=== PATIENT | female | born 1930 | race African-American/Black ===

== ENCOUNTER 2017-09-26 23:49 | Emergency (ER) | payer MEDICARE, OTHER ==
[~2017-09-26] VITALS: Ht 167.6 cm; Wt 47.2 kg
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
[2017-09-27 00:21] LABS: BASOPHILS % (AUTO) 1.5 % (0.0-2.0); EOSINOPHILS % (AUTO) 1.4 % (0.0-3.0); LYMPHOCYTES % (AUTO) 23.8 % (20.0-45.0); MEAN CORPUSCULAR HEMOGLOBIN 29.6 PG (27.0-31.0); MEAN CORPUSCULAR HGB CONC 32.1 G/DL (32.0-36.0); MEAN CORPUSCULAR VOLUME 92 FL (80-99); MEAN PLATELET VOLUME 6.6 FL (6.5-10.1); MONOCYTES % (AUTO) 9.3 % (1.0-10.0); NEUTROPHILS % (AUTO) 64.1 % (45.0-75.0); PLATELET COUNT 212 K/UL (150-450); RED BLOOD COUNT 4.14 M/UL (4.20-5.40); RED CELL DISTRIBUTION WIDTH 12.8 % (11.6-14.8); WHITE BLOOD COUNT 7.2 K/UL (4.8-10.8)
[2017-09-27 00:28] VITALS: BP 91/52
[2017-09-27 00:29] LABS: ANION GAP 10 mmol/L (5-15); CALCIUM 10.8 MG/DL (8.5-10.1); CARBON DIOXIDE 21 MMOL/L (21-32); CHLORIDE 109 MMOL/L (98-107); CREATININE 1.2 MG/DL (0.55-1.30); POTASSIUM 3.7 MMOL/L (3.5-5.1); SODIUM 140 MMOL/L (136-145)
[2017-09-27 00:43] LABS: ALANINE AMINOTRANSFERASE 31 U/L (12-78); ASPARTATE AMINO TRANSFERASE 26 U/L (15-37); CKMB 2.5 NG/ML (0.0-3.6); TOTAL PROTEIN 7.1 G/DL (6.4-8.2)
[2017-09-27] MEDS ORDERED: Aspirin Baby 81mg ORAL ONE (00:45)
[2017-09-27 00:54] LABS: REFLEX LACTIC ACID YES OR NO YES
[2017-09-27 01:28] LABS: KETONES,URINE NEGATIVE (NEGATIVE); NITRITE,URINE POSITIVE (NEGATIVE); PH,URINE 5 (4.5-8.0); PROTEIN,URINE 1+ (NEGATIVE); UROBILINOGEN,URINE NORMAL MG/DL (0.0-1.0)
[2017-09-27 01:39] LABS: APPEARANCE,URINE SLIGHTLY CLOUDY; LEUKOCYTE ESTERASE ,URINE 2+ (NEGATIVE); RBC,URINE 0-2 /HPF (0 - 2)
[2017-09-27 01:40] LABS: BACTERIA,URINE MODERATE /HPF; SQUAMOUS EPITHELIAL CELL,UR MODERATE /LPF (NONE/OCC)
[2017-09-27] MEDS ORDERED: Nitroglycerin Subl 0.4mg tab SL PRN ×2 (01:45→02:45)
[2017-09-27] MEDS ORDERED: Morphine Sulfate 2mg/ml Inj IVP ONE (02:30)
[2017-09-27] MEDS ORDERED: cefTRIAXone 1 GM in NS 55 ML IVPB ONE (02:30)
[2017-09-27] MEDS ORDERED: Enoxaparin 60mg Inj SUBQ ONE (02:30)
[2017-09-27 02:40] VITALS: BP 101/50
[2017-09-27 03:15] VITALS: BP 106/51
[2017-09-27 04:19] VITALS: BP 101/57
--- NOTE | 2017-09-27 11:05 | Diagnostic Imaging Report ---
Indications: Syncope Technique: Spiral acquisitions obtained through the brain. Angled axial and coronal 5 x 5 mm slices were reconstructed. Total dose length product 1245 mGycm. CTDI vol(s) 70 mGy. Dose reduction achieved using automated exposure control Comparison: None Findings: There is an area of encephalomalacia involving the right [place] and parietal lobes. There is resultant ex vacuo dilatation of the atrium and temporal horn the right lateral ventricle. There is age-related enlargement of ventricles and extra axial CSF spaces. There is periventricular deep white matter chronic ischemic change. No acute intracranial hemorrhage or edema. No mass effect nor midline shift. Intact calvarium. There is evidence of prior ocular surgery bilaterally. There is right-sided ethmoid and left-sided sphenoid opacification. 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 The CT scanner at [facility] is accredited by the [employer] and the scans are performed using protocols designed to limit radiation exposure to as low as reasonably achievable to attain images of sufficient resolution adequate for diagnostic evaluation.
--- NOTE | 2017-09-27 13:27 | Diagnostic Imaging Report ---
Indication: SYNCOPE Technique: One view of the chest Comparison: none Findings: The lungs and pleural spaces are clear. Heart size is upper limits normal. Aorta is tortuous and calcified. There is right paratracheal widening with deviation of the trachea to the left. 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 Consider thyroid ultrasound for further evaluation No acute process Findings discussed by phone with Dr. Escalera in the emergency room at the time of interpretation
--- NOTE | 2017-09-29 15:36 | Cardiology Report ---
APPROVED REPORT EKG Measurement Heart [id number] Sinus rhythm with 1st degree AV block Abnormal ECG
== END 2017-09-27 04:25 | disposition short-term general hospital (02) ==
LOC: EDBD 23:49 → EMR 23:59
DX: R55 Syncope and collapse (principal); I24.9 Acute ischemic heart disease, unspecified; I20.0 Unstable angina; I10 Essential (primary) hypertension; Z88.1 Allergy status to other antibiotic agents
CPT/HCPCS: 36415; 70450; 71010; 80053; 81003; 82550; 82553; 83605; 84484; 85025; 87040; 87086; 87181; 93005; 96361; 96372; 96374; 99291; J0696; J1650; J2270

== ENCOUNTER 2017-11-16 10:17 | Emergency (ER) | payer MEDICARE ==
[~2017-11-16] VITALS: Ht 167.6 cm; Wt 44.9 kg
[2017-11-16 10:22] VITALS: BP 158/94
--- NOTE | 2017-11-16 11:54 | Emergency Room Report ---
History of Present Illness General Chief Complaint: Multiple Trauma/Fall Source: Patient, Medical Record Present Illness HPI 87-year-old female presents with right hip pain and lower back pain after traumatic fall 2 days ago. Patient was moving from sitting to standing\\walking position, was "feeling sick" with nausea and then passed out and fell on ground. Denies hitting head. Patient on aspirin and Plavix. Had stent placed in September for heart attack at [facility] Per daughter, patient started on multiple blood pressure medications including carvedilol, losartan and now imdur Patient's daughter states that her blood pressures been difficult to control, PMD started on Imdur because systolic blood pressure now 150. Allergies: Coded Allergies: TETRACYCLINE (Verified Allergy, Unknown, 09/27/17) Patient History Past Medical History: CAD Past Surgical History: other - stent Pertinent Family History: none Social History: Denies: smoking, alcohol use, drug use Now: No Immunizations: UTD Reviewed Nursing Documentation: PMH: Agreed, PSxH: Agreed Nursing Documentation-PMH Past Medical History: No History, Except For Hx Hypertension: Yes Review of Systems All Other Systems: negative except mentioned in HPI Physical Exam Vital Signs Date Time Temp Pulse Resp B/P (MAP) Pulse Ox O2 Delivery O2 Flow Rate FiO2 11/16/17 10:22 97.3 73 18 158/94 98 Room Air Sp02 EP Interpretation: reviewed, normal General Appearance: normal inspection, well appearing, no apparent distress, alert, GCS 15, non-toxic Head: normocephalic, atraumatic Eyes: bilateral eye PERRL, bilateral eye EOMI ENT: normal ENT inspection, hearing grossly normal, normal pharynx, no angioedema, normal voice, TMs + canals normal, uvula midline, moist mucus membranes Neck: normal inspection, full range of motion, supple, thyroid normal, no meningismus, no bony tend Respiratory: normal inspection, lungs clear, normal breath sounds, no rhonchi, no respiratory distress, no retraction, no accessory muscle use, no wheezing, speaking full sentences Cardiovascular #1: regular rate, rhythm, no edema, no JVD, normal capillary refill Gastrointestinal: normal inspection, normal bowel sounds, non tender, soft, no mass, no peritonitis, non-distended, no guarding, no hernia, no pulsatile mass Genitourinary: no CVA tenderness Musculoskeletal: normal inspection, normal range of motion, no calf tenderness , pelvis stable, Conrado's Sign negative, other - No obvious signs of trauma to lower back, significant tenderness to LS spine; Tenderness along the right inguinal canal, and proximal femur. Reduced range of motion due to pain to right hip, but no shortening of right lower extremity. Neurologic: normal inspection, alert, oriented x3, responsive, non destructive evaluation specialist III-XII nml as tested, motor strength/tone normal, cerebellar normal, normal gait, speech normal Psychiatric: normal inspection, judgement/insight normal, mood/affect normal, no suicidal/homicidal ideation, no delusions Skin: normal inspection, normal color, no rash Lymphatic: normal inspection, no adenopathy Medical Decision Making Diagnostic Impression: Primary Impression: Fall Qualified Codes: W19.XXXA - Unspecified fall, initial encounter Additional Impressions: Syncope Qualified Codes: R55 - Syncope and collapse Arthritis ER Course Right hip x-ray was concerning for possible impacted femur fracture, never on CT pelvis no obvious acute fracture or dislocation of right hip or LS spine. Patient has severe degenerative disease She refused oral Tylenol in ER No other abnormalities on labs ECG is nonischemic Blood pressure remained stable in the ER Episodes of questionable syncope at home possibly vasovagal syncope possibly due to polypharmacy for hypertension Advise primary care followup for home health management of blood pressure Advise cardiology followup for management of multiple medications for high blood pressure Patient refused prescription for pain medication Was given CT result and lab results ER course: Patient has remained stable during ED stay. Disposition: Patient is to be discharged to home. Patient is instructed to follow up with their primary care doctor within 5 days. Patient is instructed to follow up with entry level staff accountant within 3 days. Strict return precautions discussed with patient such as fever, chills, worsening/severe pain, nausea, vomiting, which may indicate severe illness. Patient verbalizes understanding and agrees with plan. Please note that this Emergency Department Report was dictated using My Single Pointkeyboarding teacher technology software, occasionally this can lead to erroneous entry secondary to interpretation by the dictation equipment EKG Diagnostic Results Rate: normal Rhythm: NSR ST Segments: no acute changes ASA given to the pt in ED: No Rhythm Strip Diag. Results EP Interpretation: yes Rate: 67 Rhythm: NSR, no PVC's, no ectopy Last Vital Signs Date Time Temp Pulse Resp B/P (MAP) Pulse Ox O2 Delivery O2 Flow Rate FiO2 11/16/17 10:22 97.3 73 18 158/94 98 Room Air Status: improved Disposition: HOME, SELF-CARE FRANKIE DE LA FUENTE M.D. Nov 16, 2017 11:54
[2017-11-16 12:05] LABS: BASOPHILS % (AUTO) 1.3 % (0.0-2.0); EOSINOPHILS % (AUTO) 2.3 % (0.0-3.0); HEMATOCRIT 36.2 % (37.0-47.0); HEMOGLOBIN 11.4 G/DL (12.0-16.0); LYMPHOCYTES % (AUTO) 20.6 % (20.0-45.0); MEAN CORPUSCULAR VOLUME 93 FL (80-99); MONOCYTES % (AUTO) 6.1 % (1.0-10.0); NEUTROPHILS % (AUTO) 69.7 % (45.0-75.0); PLATELET COUNT 208 K/UL (150-450); RED CELL DISTRIBUTION WIDTH 12.6 % (11.6-14.8); WHITE BLOOD COUNT 5.2 K/UL (4.8-10.8)
[2017-11-16 12:09] LABS: APPEARANCE,URINE CLEAR; BILIRUBIN, URINE NEGATIVE (NEGATIVE); COLOR,URINE PALE YELLOW; GLUCOSE, URINE (UA) NEGATIVE (NEGATIVE); KETONES,URINE NEGATIVE (NEGATIVE); LEUKOCYTE ESTERASE ,URINE 2+ (NEGATIVE); NITRITE,URINE NEGATIVE (NEGATIVE); PH,URINE 5 (4.5-8.0); PROTEIN,URINE NEGATIVE (NEGATIVE); UROBILINOGEN,URINE NORMAL MG/DL (0.0-1.0)
[2017-11-16 12:18] LABS: ANION GAP 10 mmol/L (5-15); BLOOD UREA NITROGEN 19 mg/dL (7-18); CALCIUM 10.2 MG/DL (8.5-10.1); CARBON DIOXIDE 21 MMOL/L (21-32); CHLORIDE 108 MMOL/L (98-107); CREATININE 0.8 MG/DL (0.55-1.30); POTASSIUM 4.2 MMOL/L (3.5-5.1); SODIUM 139 MMOL/L (136-145)
--- NOTE | 2017-11-16 12:23 | Diagnostic Imaging Report ---
Indication: Pain Technique(s): 1. XRAY Hip Routine 2v+ R 2. XRAY Pelvis 1v Comparison: None Findings: The bones are diffusely demineralized. There is severe degenerative change of the right hip with joint space narrowing, subchondral sclerosis and cystic change. There is question of impacted fracture of the right femoral neck although osteopenia and degenerative change somewhat limits evaluation. Further evaluation with CT recommended. No fracture noted in the left femur. Copious stool noted throughout the colon likely reflective of constipation. Combined Impression: Questioned impacted fracture of the right femoral neck. Osteopenia and severe degenerative change of the right hip somewhat limit evaluation. Further evaluation with CT recommended.
[2017-11-16 12:28] LABS: ALANINE AMINOTRANSFERASE 30 U/L (12-78); ALBUMIN 3.4 G/DL (3.4-5.0); ALBUMIN/GLOBULIN RATIO 0.9 (1.0-2.7); ALKALINE PHOSPHATASE 110 U/L (46-116); ASPARTATE AMINO TRANSFERASE 26 U/L (15-37); BILIRUBIN,TOTAL 0.5 MG/DL (0.2-1.0); CKMB 2.4 NG/ML (0.0-3.6); CREATINE KINASE 81 U/L (26-308)
[2017-11-16 12:36] VITALS: BP 134/72
--- NOTE | 2017-11-16 13:10 | Diagnostic Imaging Report ---
Indication: Pain status post fall 2 days ago Technique: CT of the abdomen and pelvis utilizing automated exposure control without intravenous contrast. Axial, sagittal and coronal reformats. Thin section (1.5 mm) reformats were obtained in bone windows of the lumbar spine and right hip. CT dose: Total DLP 446.65 mGycm; CTDI vol 9.54 mGy Comparison: None Findings: Please note that evaluation of the abdominal and pelvic viscera is limited without the use of intravenous and oral contrast. Within these limitations, the following observations are made: Dependent atelectasis noted in the lung bases. Heart is borderline enlarged. Coronary arterial calcifications noted. No pericardial effusion. Noncontrast evaluation of the liver, gallbladder, spleen, adrenal glands and pancreas is grossly unremarkable. Kidneys are symmetric in size. No urinary tract stones or hydronephrosis is seen bilaterally. There are well-circumscribed uniformly hyperattenuating lesions in the right kidney one in the midpole the right kidney measures 6.8 mm (series 3 image 39) additional lesion in the lower pole the right kidney measures 5 mm (series 3 image #48). These may represent small proteinaceous or hemorrhagic cysts. Bladder is unremarkable in appearance. The patient is status post hysterectomy. There is no bowel obstruction. No free intraperitoneal air or fluid is seen. Copious stool is noted throughout the colon. No focal inflammatory changes noted in the bowel. Abdominal aorta is normal in caliber, slightly tortuous with scattered atherosclerotic calcifications. There is osteopenia. There is mild scoliosis of the lumbar spine. Degenerative changes noted in the thoracolumbar spine, most pronounced at L3-L4. No acute spinal fracture identified. There is severe degenerative change of the right hip with severe joint space narrowing with [id number] apposition, subchondral sclerosis and significant subchondral cystic change. No definite/displaced fracture is identified. No femoral neck fracture is seen. The left hip is normal in appearance. Symphysis pubis is maintained. Impression: * Severe degenerative change of the right hip as detailed above. No definite/displaced fracture identified. * Mild to moderate degenerative change of the spine. No definite spinal fracture identified. * Subcentimeter well-circumscribed hyperdense right renal lesions. These likely represent hemorrhagic or proteinaceous cysts. Definitive characterization with renal ultrasound recommended on a nonemergent basis. * Coronary arterial calcifications. * Copious stool noted throughout the colon raising question for constipation. The CT scanner at [facility] is accredited by the [employer] and the scans are performed using protocols designed to limit radiation exposure to as low as reasonably achievable to attain images of sufficient resolution adequate for diagnostic evaluation.
[2017-11-16 13:49] VITALS: BP 147/74
--- NOTE | 2017-11-21 14:48 | Cardiology Report ---
APPROVED REPORT EKG Measurement Heart [id number] Normal sinus rhythm Normal ECG
== END 2017-11-16 13:50 | disposition home or self-care (01) ==
LOC: EMR 12:01
DX: M25.551 Pain in right hip (principal); R55 Syncope and collapse; M54.5 Low back pain; I10 Essential (primary) hypertension; M16.11 Unilateral primary osteoarthritis, right hip; N28.9 Disorder of kidney and ureter, unspecified; I25.10 Atherosclerotic heart disease of native coronary artery without angina pectoris; Z95.5 Presence of coronary angioplasty implant and graft
CPT/HCPCS: 36415; 72170; 74176; 80053; 81003; 82550; 82553; 84484; 85025; 93005; 99284

== ENCOUNTER 2017-11-22 20:54 | Emergency (ER) | payer MEDICARE ==
[~2017-11-22] VITALS: Ht 165.1 cm; Wt 54.4 kg
[2017-11-22] MEDS ORDERED: Lidocaine 1% 10mg/ml/Epi 0.005mg/ml 30ml vial INJ ONE (21:15)
[2017-11-22 21:30] VITALS: BP 148/80
[2017-11-22] MEDS ORDERED: Silver Nitrate Stick TOPIC ONE (21:30)
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
[2017-11-22 22:12] LABS: BASOPHILS % (AUTO) 1.2 % (0.0-2.0); EOSINOPHILS % (AUTO) 1.7 % (0.0-3.0); HEMATOCRIT 36.9 % (37.0-47.0); HEMOGLOBIN 11.7 G/DL (12.0-16.0); LYMPHOCYTES % (AUTO) 16.6 % (20.0-45.0); MEAN CORPUSCULAR VOLUME 93 FL (80-99); NEUTROPHILS % (AUTO) 72.6 % (45.0-75.0); PLATELET COUNT 242 K/UL (150-450); RED BLOOD COUNT 3.95 M/UL (4.20-5.40); RED CELL DISTRIBUTION WIDTH 13.1 % (11.6-14.8); WHITE BLOOD COUNT 6.9 K/UL (4.8-10.8)
[2017-11-22 22:28] LABS: ANION GAP 13 mmol/L (5-15); BLOOD UREA NITROGEN 24 mg/dL (7-18); CALCIUM 10.6 MG/DL (8.5-10.1); CARBON DIOXIDE 20 MMOL/L (21-32); CHLORIDE 107 MMOL/L (98-107); CREATININE 0.8 MG/DL (0.55-1.30); POTASSIUM 3.9 MMOL/L (3.5-5.1); SODIUM 140 MMOL/L (136-145)
[2017-11-22 22:30] VITALS: BP 146/78
[2017-11-22 22:33] LABS: ALANINE AMINOTRANSFERASE 31 U/L (12-78); ALBUMIN 3.7 G/DL (3.4-5.0); ALBUMIN/GLOBULIN RATIO 0.9 (1.0-2.7); ALKALINE PHOSPHATASE 117 U/L (46-116); ASPARTATE AMINO TRANSFERASE 27 U/L (15-37); BILIRUBIN,TOTAL 0.4 MG/DL (0.2-1.0)
[2017-11-22] MEDS ORDERED: AMOXICILLIN500 MG ORAL (23:28)
[2017-11-22] MEDS ORDERED: TYLENOL325 MG ORAL (23:28)
[2017-11-22 23:30] VITALS: BP 146/80
[2017-11-23 00:08] VITALS: BP 146/80
--- NOTE | 2017-12-04 17:46 | Cardiology Report ---
APPROVED REPORT EKG Measurement Heart [id number] Normal sinus rhythm Normal ECG
== END 2017-11-23 00:08 | disposition home or self-care (01) ==
LOC: EMR 21:21
DX: R04.0 Epistaxis (principal); Z79.01 Long term (current) use of anticoagulants; I10 Essential (primary) hypertension
CPT/HCPCS: 30901; 36415; 80053; 84484; 85025; 85610; 86850; 86900; 86901; 93005; 99284

== ENCOUNTER 2017-11-25 13:13 | Emergency (ER) | payer MEDICARE ==
[~2017-11-25] VITALS: Ht 165.1 cm; Wt 49.9 kg
[~2017-11-25 13:13] MED LIST: AMOXICILLIN500 MG ORAL; TYLENOL325 MG ORAL
--- NOTE | 2017-11-25 14:03 | Emergency Room Report ---
History of Present Illness General Chief Complaint: To Be Triaged Source: Patient, Family Member Present Illness HPI 87-year-old female patient presents to ER for removal of Rhino Rocket from left nostril. Patient was seen in ER 3 days ago for complaints of epistaxis; states she was instructed to return for removal. Patient reports history of picking her nose. Patient complains of productive cough with sputum; denies blood in sputum. Patient denies fever, dizziness, lightheadedness, chest pain, SOB. Allergies: Coded Allergies: TETRACYCLINE (Verified Allergy, Unknown, 09/27/17) Patient History Past Medical History: see triage record Social History: Denies: smoking, alcohol use, drug use Reviewed Nursing Documentation: PMH: Agreed, PSxH: Agreed Nursing Documentation-PMH Hx Hypertension: Yes Review of Systems All Other Systems: negative except mentioned in HPI Physical Exam Vital Signs Date Time Temp Pulse Resp B/P (MAP) Pulse Ox O2 Delivery O2 Flow Rate FiO2 11/25/17 14:21 97.7 72 16 181/88 100 Room Air Sp02 EP Interpretation: reviewed, normal General Appearance: no apparent distress, alert, GCS 15, non-toxic Head: normocephalic, atraumatic Eyes: bilateral eye normal inspection, bilateral eye PERRL ENT: hearing grossly normal, normal pharynx, no angioedema, normal voice, uvula midline, moist mucus membranes, nasal congestion, other - blood in nasal cavity, no active bleeding Respiratory: chest non-tender, lungs clear, normal breath sounds, no respiratory distress, speaking full sentences Cardiovascular #1: regular rate, rhythm, no edema Musculoskeletal: gait/station normal, normal range of motion, non-tender Neurologic: alert, oriented x3, responsive, motor strength/tone normal, sensory intact, speech normal Psychiatric: mood/affect normal Skin: normal color, no rash, warm/dry, well hydrated, other - dried blood noted around left external nares Medical Decision Making PA Attestation Dr. Alex is my supervising Physician whom patient management has been discussed with. Diagnostic Impression: Primary Impression: Visit for wound check ER Course Pt. presents to the ED for removal of left nasal rhino rocket. Ddx considered but are not limited to recurrent epistaxis, infection, soft tissue injury. ORDERS: none required at this time, the diagnosis is clinical ED INTERVENTIONS: Explained procedure to patient. Patient gave verbal agreement. Rhinorocket deflated and removed from left nares. Patient tolerated procedure well. Nose examined following procedure, no acute bleeding noted. Patient in no acute distress, hemodynamically stable. DISCHARGE: At this time pt. is stable for d/c to home. Patient instructed to follow up with [facility] for further treatment. Will provide printed patient care instructions, and any necessary prescriptions. Care plan and follow up instructions have been discussed with the patient prior to discharge Disposition: HOME, SELF-CARE Condition: Stable Referrals: [facility],REFERR[facility] (PCP) Patient Instructions: Nosebleed, [id number]-Nuvp Additional Instructions: Followup with [facility] in 3 -5 days. Take medications as directed. Patient questions asked and answered. ER precautions given, patient instructed to return to ER immediately for any new or worsening of symptoms. Emiliano Campos Nov 25, 2017 14:03
[2017-11-25 14:29] VITALS: BP 181/88
[2017-11-25 14:30] VITALS: BP 181/88
== END 2017-11-25 14:32 | disposition home or self-care (01) ==
LOC: EMR 13:55
DX: Z48.00 Encounter for change or removal of nonsurgical wound dressing (principal); I10 Essential (primary) hypertension; Z88.1 Allergy status to other antibiotic agents
CPT/HCPCS: 99282

== ENCOUNTER 2018-01-07 10:39 | Inpatient (IN) | payer MEDICARE ==
[~2018-01-07] VITALS: Ht 162.6 cm; Wt 49.9 kg
[2018-01-07] VITALS (9 sets, daily range): BP systolic 125–161; BP diastolic 60–85
--- NOTE | 2018-01-07 11:01 | Emergency Room Report ---
History of Present Illness General Chief Complaint: Chest Pain Source: Patient, Medical Record (Herberth Prasad) Present Illness HPI Patient is an 87-year-old female presented having increased chest pain. Patient gradual onset of symptoms. Patient reports having intermittent pain for the past this had some radiation to her left arm. Patient described this as a tightness sensation. Patient denied any cardiac history. She reportedly takes Coreg as well as Plavix. She denies any fever. Pain is unchanged by movement. She reports having some associated breast pain. (Herberth Prasad) Allergies: Coded Allergies: TETRACYCLINE (Verified Allergy, Unknown, 09/27/17) Patient History Past Medical History: see triage record Reviewed Nursing Documentation: PMH: Agreed, PSxH: Agreed (Herberth Prasad) Nursing Documentation-PMH Past Medical History: No History, Except For Hx Hypertension: Yes (Herberth Prasad) Review of Systems All Other Systems: negative except mentioned in HPI (Herberth Prasad) Physical Exam Vital Signs Date Time Temp Pulse Resp B/P (MAP) Pulse Ox O2 Delivery O2 Flow Rate FiO2 01/07/18 10:43 97.5 69 18 167/90 100 Room Air 97.5 Sp02 EP Interpretation: reviewed, normal General Appearance: normal inspection, well appearing, no apparent distress, alert, GCS 15 Head: atraumatic ENT: normal ENT inspection, hearing grossly normal, normal voice Neck: normal inspection, full range of motion, supple, no bony tend Respiratory: normal inspection, lungs clear, normal breath sounds, no respiratory distress, no retraction, no wheezing Cardiovascular #1: regular rate, rhythm, no edema Gastrointestinal: normal inspection, normal bowel sounds, non tender, soft, no guarding, no hernia Genitourinary: no CVA tenderness Musculoskeletal: normal inspection, back normal, normal range of motion Neurologic: normal inspection, alert, oriented x3, responsive, tester armature or fields III-XII nml as tested, speech normal Psychiatric: normal inspection, judgement/insight normal, mood/affect normal Skin: normal inspection, normal color, no rash (Herberth Prasad) Medical Decision Making Diagnostic Impression: Primary Impression: Chest pain Additional Impression: ACS (acute coronary syndrome) ER Course Patient presented for chest pain. Differential diagnosis included but was not limited to acute coronary syndrome, pulmonary embolism, pneumonia, aortic dissection, shingles, pneumothorax, aortic dissection, esophageal rupture, pericarditis. Because of complexity of patient's case laboratory testing and imaging studies were ordered.Patient is noted to have evidence of prior cardiac stenting. Patient was discussed with physician from [facility] will arrange transfer. Patient was endorsed to Dr. Mendoza pending transfer to [facility]. Labs Test 01/07/18 11:10 01/07/18 12:40 White Blood Count 5.4 K/UL (4.8-10.8) Red Blood Count 4.16 M/UL (4.20-5.40) Hemoglobin 11.9 G/DL (12.0-16.0) Hematocrit 38.0 % (37.0-47.0) Mean Corpuscular Volume 91 FL (80-99) Mean Corpuscular Hemoglobin 28.6 PG (27.0-31.0) Mean Corpuscular Hemoglobin Concent 31.4 G/DL (32.0-36.0) Red Cell Distribution Width 12.3 % (11.6-14.8) Platelet Count 214 K/UL (150-450) Mean Platelet Volume 6.5 FL (6.5-10.1) Neutrophils (%) (Auto) 68.1 % (45.0-75.0) Lymphocytes (%) (Auto) 20.4 % (20.0-45.0) Monocytes (%) (Auto) 7.7 % (1.0-10.0) Eosinophils (%) (Auto) 2.6 % (0.0-3.0) Basophils (%) (Auto) 1.1 % (0.0-2.0) Sodium Level 137 MMOL/L (136-145) Potassium Level 4.0 MMOL/L (3.5-5.1) Chloride Level 106 MMOL/L (98-107) Carbon Dioxide Level 20 MMOL/L (21-32) Anion Gap 11 mmol/L (5-15) Blood Urea Nitrogen 26 mg/dL (7-18) Creatinine 0.9 MG/DL (0.55-1.30) Estimat Glomerular Filtration Rate mL/min (>60) Glucose Level 81 MG/DL (74-106) Calcium Level 10.6 MG/DL (8.5-10.1) Total Bilirubin 0.4 MG/DL (0.2-1.0) Aspartate Amino Transf (AST/SGOT) 23 U/L (15-37) Alanine Aminotransferase (ALT/SGPT) 30 U/L (12-78) Alkaline Phosphatase 135 U/L (46-116) Total Creatine Kinase 81 U/L (26-308) Creatine Kinase MB 2.2 NG/ML (0.0-3.6) Creatine Kinase MB Relative Index 2.7 Troponin I 0.000 ng/mL (0.000-0.056) Pro-B-Type Natriuretic Peptide 123 pg/mL (0-125) Total Protein 7.7 G/DL (6.4-8.2) Albumin 3.6 G/DL (3.4-5.0) Globulin 4.1 g/dL Albumin/Globulin Ratio 0.9 (1.0-2.7) Lipase 305 U/L (73-393) Urine Color Pale yellow Urine Appearance Clear Urine pH 5 (4.5-8.0) Urine Specific [place] 1.010 (1.005-1.035) Urine Protein Negative (NEGATIVE) Urine Glucose (UA) Negative (NEGATIVE) Urine Ketones Negative (NEGATIVE) Urine Occult Blood Negative (NEGATIVE) Urine Nitrite Negative (NEGATIVE) Urine Bilirubin Negative (NEGATIVE) Urine Urobilinogen Normal MG/DL (0.0-1.0) Urine Leukocyte Esterase Negative (NEGATIVE) (Herberth Prasad) ER Course Patient signed out to Dr. Tolentino, admit to tele (Esperanza Mendoza M.D.) EKG Diagnostic Results Rate: normal Rhythm: NSR ST Segments: no acute changes (Herberth Prasad) Rhythm Strip Diag. Results EP Interpretation: yes Rhythm: NSR, no PVC's, no ectopy (Herberth Prasad) Last Vital Signs Date Time Temp Pulse Resp B/P (MAP) Pulse Ox O2 Delivery O2 Flow Rate FiO2 01/07/18 10:43 97.5 69 18 167/90 100 Room Air 97.5 Status: unchanged (Herberth Prasad) Condition: Serious Herberth Prasad Jan 07, 2018 11:01 Esperanza Mendoza M.D. Jan 07, 2018 17:10
[2018-01-07 11:21] LABS: BASOPHILS % (AUTO) 1.1 % (0.0-2.0); EOSINOPHILS % (AUTO) 2.6 % (0.0-3.0); HEMOGLOBIN 11.9 G/DL (12.0-16.0); LYMPHOCYTES % (AUTO) 20.4 % (20.0-45.0); MEAN CORPUSCULAR VOLUME 91 FL (80-99); MONOCYTES % (AUTO) 7.7 % (1.0-10.0); NEUTROPHILS % (AUTO) 68.1 % (45.0-75.0); PLATELET COUNT 214 K/UL (150-450); RED BLOOD COUNT 4.16 M/UL (4.20-5.40); RED CELL DISTRIBUTION WIDTH 12.3 % (11.6-14.8); WHITE BLOOD COUNT 5.4 K/UL (4.8-10.8)
--- NOTE | 2018-01-07 11:27 | Diagnostic Imaging Report ---
Indication: Dyspnea Comparison: 09/27/2017 A single view chest radiograph was obtained. Findings: Borderline cardiomegaly demonstrated. Lungs are clear. Bones are osteopenic. 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 Aorta is calcified. IMPRESSION: No acute disease
[2018-01-07 11:32] LABS: ANION GAP 11 mmol/L (5-15); BLOOD UREA NITROGEN 26 mg/dL (7-18); CALCIUM 10.6 MG/DL (8.5-10.1); CARBON DIOXIDE 20 MMOL/L (21-32); CHLORIDE 106 MMOL/L (98-107); CREATININE 0.9 MG/DL (0.55-1.30); SODIUM 137 MMOL/L (136-145)
[2018-01-07 11:47] LABS: ALANINE AMINOTRANSFERASE 30 U/L (12-78); ALBUMIN 3.6 G/DL (3.4-5.0); ALBUMIN/GLOBULIN RATIO 0.9 (1.0-2.7); ALKALINE PHOSPHATASE 135 U/L (46-116); ASPARTATE AMINO TRANSFERASE 23 U/L (15-37); BILIRUBIN,TOTAL 0.4 MG/DL (0.2-1.0); CKMB 2.2 NG/ML (0.0-3.6); CREATINE KINASE 81 U/L (26-308)
[2018-01-07 14:03] LABS: APPEARANCE,URINE CLEAR; BILIRUBIN, URINE NEGATIVE (NEGATIVE); COLOR,URINE PALE YELLOW; GLUCOSE, URINE (UA) NEGATIVE (NEGATIVE); KETONES,URINE NEGATIVE (NEGATIVE); LEUKOCYTE ESTERASE ,URINE NEGATIVE (NEGATIVE); NITRITE,URINE NEGATIVE (NEGATIVE); PH,URINE 5 (4.5-8.0); PROTEIN,URINE NEGATIVE (NEGATIVE); UROBILINOGEN,URINE NORMAL MG/DL (0.0-1.0)
[2018-01-07] MEDS ORDERED: PANTOPRAZOLE SO40 MG ORAL (14:38)
[2018-01-07] MEDS ORDERED: CLOPIDOGREL75 MG ORAL (14:38)
[2018-01-07] MEDS ORDERED: CARVEDILOL6.25 MG ORAL (14:38)
[2018-01-07] MEDS ORDERED: LOSARTAN POTASS25 MG ORAL (14:38)
[2018-01-07] MEDS ORDERED: SIMVASTATIN20 MG ORAL (14:38)
[2018-01-07] MEDS ORDERED: ASPIR 8181 MG ORAL (14:38)
[2018-01-07] MEDS ORDERED: Aspirin Baby 81mg ORAL ONE (14:45)
[2018-01-07] MEDS ORDERED: VITAMIN B-12500 MCG ORAL (20:21)
[2018-01-07] MEDS ORDERED: VITAMIN D250000 UNI1 (20:22)
[2018-01-07] MEDS ORDERED: VITAMIN B-12500 MCG (20:23)
[2018-01-07] MEDS: Losartan 25mg tab ORAL SCH ×2 (22:45→23:17)
[2018-01-08] VITALS: BP 103/65
[2018-01-08 08:00] VITALS: BP 128/68
[2018-01-08] MEDS: Losartan 25mg tab ORAL SCH ×2 (08:37→17:27)
[2018-01-08] MEDS: Aspirin EC 81mg tab ORAL SCH (08:38)
[2018-01-08] MEDS: Carvedilol 6.25mg Tab ORAL SCH ×2 (08:39→22:21)
[2018-01-08 09:02] LABS: CHOLESTEROL 151 MG/DL (< 200); HDL CHOLESTEROL 70 MG/DL (40-60); TRIGLYCERIDES 66 MG/DL (30-150)
--- NOTE | 2018-01-08 09:13 | History & Physical ---
History and Physical History & Physicial dict H&P ACS HTN HPLD troponins cardiac FRANKIE Keane Jan 08, 2018 09:12
[2018-01-08 16:00] VITALS: BP 129/70
--- NOTE | 2018-01-08 17:15 | History and Physical Report ---
DATE OF ADMISSION: 01/07/2018 CHIEF COMPLAINT: Chest pain. HISTORY OF PRESENT ILLNESS: The patient is a poor historian. She reports that she had pain in the left breast and nipple area two days prior to admission. This is associated with heat over her chest and back. She applied some hot packs and felt better. One day prior to admission, she had some palpitations. On the day of admission, she decided to come to the emergency department although she had no further symptoms and the pain had resolved. She described the pain to the knee as sharp and lasting seconds to minutes. She described to the emergency physician that she had a tightness radiating to the left arm. She denies any prior cardiac history to my query. The emergency physician obtained a history of prior cardiac stent placement. Risk factors include hypertension and hyperlipidemia. She denies any coronary disease in the parents, smoking, or diabetes. PAST MEDICAL HISTORY: The aforementioned hypertension, hyperlipidemia, and she had an appendectomy. ALLERGY: Tetracycline. MEDICATIONS: Plavix, Coreg, aspirin, vitamin B12, vitamin D, losartan, pantoprazole, simvastatin. REVIEW OF SYSTEMS: Otherwise unremarkable. PHYSICAL EXAMINATION: GENERAL: The patient is alert and responds appropriately. VITAL SIGNS: Show blood pressure is 134/71 presently. It has been as high as 167/90 and as low as 103/65, heart rate is between 64 and 100, presently 78. Other vital signs are normal. SKIN: Warm and dry. She is thin. HEENT: Head is normocephalic. NECK: No jugular venous distention or lymphadenopathy. CHEST: Clear. CARDIAC: Rhythm is regular without murmur or gallop. ABDOMEN: Soft and nontender. Liver and spleen are not enlarged. EXTREMITIES: No clubbing, cyanosis, or edema. LABORATORY AND DIAGNOSTIC DATA: Laboratory studies show a hemoglobin is 11.9, white count and platelet count are normal. Chemistry shows negative troponin. LDL is 76. TSH is normal. Urinalysis is negative. Chest x-ray is negative. EKG shows sinus rhythm. IMPRESSION: 1. Atypical chest pain. 2. History of possible coronary heart disease. 3. Hypertension. 4. Hyperlipidemia. PLAN: The patient will have third troponin to rule out acute MO. Dr. Mcbride will see the patient in cardiac consultation. Early discharge is anticipated. Don Tolentino M.D. DR: Radha JOB#: [id number] CC: Giovani Parr M.D. ; FAX#: [phone]
[2018-01-08 20:00] VITALS: BP 148/86
[2018-01-09] VITALS (7 sets, daily range): BP systolic 106–145; BP diastolic 60–76
[2018-01-09] MEDS ORDERED: Lexiscan 0.4mg/5ml syringe IV ONE (07:00)
[2018-01-09] MEDS: Carvedilol 6.25mg Tab ORAL SCH ×2 (09:00→12:04)
[2018-01-09] MEDS: Losartan 25mg tab ORAL SCH ×3 (09:24→17:40)
[2018-01-09] MEDS: Aspirin EC 81mg tab ORAL SCH (09:25)
--- NOTE | 2018-01-09 13:43 | Diagnostic Imaging Report ---
Indication: chest pain Technique: The study was conducted under the supervision of a spudder. lexiscan (regadenoson) infusion over 10 seconds followed by intravenous administration of 31.8 mCi of technetium 99m Myoview was performed. Three plane SPECT imaging of the heart was then performed. A resting study was performed as part of the one-day protocol with 10.2 mCi of technetium 99m myoview injected intravenously at that time. Three plane SPECT imaging of the heart was obtained. Comparison: None Clinical data: 1. Clinical response: Ischemic per Dr. Mcbride 2. Electrocardiographic response: Non ischemic Findings: The myocardial perfusion scan demonstrates no definite fixed or reversible perfusion defects. Left ventricular ejection fraction is estimated at 82% which is likely an overestimation. IMPRESSION: No scintigraphic evidence of myocardial ischemia. Please further cardiology notes/consultation.
--- NOTE | 2018-01-10 10:06 | Discharge Summary ---
Discharge Summary Hospital Course Date of Admission Jan 07, 2018 at 16:40 Date of Discharge Jan 09, 2018 at 18:15 Admitting Diagnosis Chest pain HPI Maryanne Cummings is a 87 year old female who was admitted on Jan 07, 2018 at 16: 40 for Chest Pain Hospital Course [id number] Discharge Discharge Disposition Patient was discharged to Home (01) Discharge Diagnoses: Zainab Walker NP Jan 10, 2018 10:06
--- NOTE | 2018-01-11 03:00 | Discharge Summary 2 SIG ---
DATE OF ADMISSION: 01/07/2018 DATE OF DISCHARGE: 01/09/2018 BRIEF HOSPITAL COURSE: The patient is an 87-year-old female with history of hypertension, hyperlipidemia, presented to ED complaining of pain on the left breast area and nipple area, two days prior to admission. Symptoms were associated with feeling of heat over the chest and back. She applied hot packs and felt better. On the day prior to admission, she had palpitations. On the day of admission, she decided to come to emergency department although she no longer had further symptoms and the pain had resolved. She described the pain to be sharp and lasting for seconds to minutes. She had tightness radiating to the left arm. She denied any prior cardiac history. Due to her risk factors including hypertension and hyperlipidemia, she was admitted for further evaluation of chest pain. She was admitted to telemetry for cardiac evaluation. Chest x-ray showed no acute disease. Cardiac troponins were negative. Cholesterol panel was checked. LDL was 76 and HDL was 70. She had normal thyroid function. On 01/09/2018, she underwent myocardial perfusion scan. Results were nonischemic. There was no scintigraphic evidence of myocardial ischemia. She was eventually discharged home. FINAL DIAGNOSES: 1. Atypical chest pain. 2. History of possible coronary heart disease. 3. Hypertension. 4. Hyperlipidemia. DISPOSITION: The patient was discharged home. DISCHARGE MEDICATIONS: Refer to medication list. DISCHARGE INSTRUCTIONS: Follow up with PMD in a week. Don Tolentino M.D. I have been assigned to dictate discharge summary on this account and I was not involved in the patient's management. Zainab Walker N.P. DR: Renny JOB#: [id number] CC:
--- NOTE | 2018-01-12 16:21 | Cardiology Report ---
APPROVED REPORT EKG Measurement Heart [id number] Normal sinus rhythm Normal ECG
--- NOTE | 2018-01-13 09:27 | Cardiology Report ---
APPROVED REPORT EXAM: Two-dimensional and M-mode echocardiogram with Doppler and color Doppler. INDICATION Chest Pain M-Mode DIMENSIONS IVSd1.2 (0.7-1.1cm)Left Atrium (MM)3.2 (1.6-4.0cm) LVDd3.9 (3.5-5.6cm)Aortic Root2.6 (2.0-3.7cm) PWd0.8 (0.7-1.1cm)Aortic Cusp Exc.1.5 (1.5-2.0cm) LVDs1.5 (2.5-4.0cm) PWs1.7 cm Normal left ventricular chamber size, systolic function and wall motion. Left ventricular ejection fraction estimated to be 60 %. Mild left ventricular hypertrophy. No evidence of pericardial effusion. All other cardiac chamber sizes are within normal limits. Mild focal aortic valve sclerosis with adequate cusp excursion. Mildly thickened mitral valve leaflets with normal excursion. Mild mitral annulus and aortic root calcification. Normal pulmonic valve structure. Normal tricuspid valve structure. IVC is normal in size with physiological collapse. A color flow and spectral Doppler study was performed and revealed: No aortic insufficiency. Trace mitral regurgitation. Mitral diastolic velocities suggest mild left ventricular diastolic dysfunction (Grade I). Trace tricuspid regurgitation. Tricuspid systolic velocities suggests peak right ventricular systolic pressure of 27 mmHg. No pulmonic regurgitation present.
--- NOTE | 2018-01-15 16:20 | Cardiology Report ---
APPROVED REPORT EKG Measurement Heart [id number] Normal sinus rhythm Normal ECG
== END 2018-01-09 18:15 | disposition home or self-care (01) | DRG 313 ==
LOC: EMR 11:08 → 2E 16:40 → EDBEDREQ 18:50 → 2E 20:02
DX: R07.89 Other chest pain (principal); I25.10 Atherosclerotic heart disease of native coronary artery without angina pectoris; I10 Essential (primary) hypertension; E78.5 Hyperlipidemia, unspecified
CPT/HCPCS: 36415; 71045; 78452; 80053; 80061; 81003; 82550; 82553; 83690; 83880; 84443; 84484; 85025; 93005; 93017; 93306; 99285; J2785

== ENCOUNTER 2018-09-11 09:32 | Emergency (ER) | payer MEDICARE ==
[~2018-09-11] VITALS: Ht 167.6 cm; Wt 47.6 kg
[~2018-09-11 09:32] MED LIST changes: +ASPIR 8181 MG ORAL; +CARVEDILOL6.25 MG ORAL; +CLOPIDOGREL75 MG ORAL; +LOSARTAN POTASS25 MG ORAL; +PANTOPRAZOLE SO40 MG ORAL; +SIMVASTATIN20 MG ORAL; +VITAMIN B-12500 MCG; +VITAMIN B-12500 MCG ORAL; +VITAMIN D250000 UNI1
[2018-09-11 09:55] VITALS: BP 149/70
--- NOTE | 2018-09-11 10:15 | Emergency Room Report ---
History of Present Illness General Chief Complaint: Chest Pain Source: Patient Present Illness HPI This patient c/o warm feeling across anterior chest yesterday. At rest. She cannot state if duration was more or less than an hour. Mild discomfort. She is compliant with Losartan, Plavix, Pantoprazole. No problem today. No cough, no fever, no travel. No leg pain/swelling. DATE OF ADMISSION: 01/07/2018 DATE OF DISCHARGE: 01/09/2018 BRIEF HOSPITAL COURSE: The patient is an 87-year-old female with history of hypertension, hyperlipidemia, presented to ED complaining of pain on the left breast area and nipple area, two days prior to admission. Symptoms were associated with feeling of heat over the chest and back. She applied hot packs and felt better. On the day prior to admission, she had palpitations. On the day of admission, she decided to come to emergency department although she no longer had further symptoms and the pain had resolved. She described the pain to be sharp and lasting for seconds to minutes. She had tightness radiating to the left arm. She denied any prior cardiac history. Due to her risk factors including hypertension and hyperlipidemia, she was admitted for further evaluation of chest pain. She was admitted to telemetry for cardiac evaluation. Chest x-ray showed no acute disease. Cardiac troponins were negative. Cholesterol panel was checked. LDL was 76 and HDL was 70. She had normal thyroid function. On 01/09/2018, she underwent myocardial perfusion scan. Results were nonischemic. There was no scintigraphic evidence of myocardial ischemia. She was eventually discharged home. Allergies: Coded Allergies: TETRACYCLINE (Verified Allergy, Unknown, 09/27/17) Nursing Documentation-[facility] Past Medical History: No History, Except For Hx Hypertension: Yes Review of Systems Constitutional: Reports: no symptoms Eye: Reports: no symptoms ENT: Reports: no symptoms Respiratory: Reports: no symptoms Cardiovascular: Reports: no symptoms Gastrointestinal: Reports: no symptoms Genitourinary: Reports: no symptoms Musculoskeletal: Reports: no symptoms Skin: Reports: no symptoms Psychiatric: Reports: no symptoms Neurological: Reports: no symptoms Endocrine: Reports: no symptoms Hematologic/Lymphatic: Reports: no symptoms Allergic: Reports: no symptoms All Other Systems: negative except mentioned in HPI Physical Exam Vital Signs Date Time Temp Pulse Resp B/P (MAP) Pulse Ox O2 Delivery O2 Flow Rate FiO2 09/11/18 09:33 97.9 71 18 171/87 99 Room Air Sp02 EP Interpretation: reviewed, normal General Appearance: normal inspection, well appearing, no apparent distress, alert, GCS 15, non-toxic Head: normocephalic, atraumatic Eyes: bilateral eye normal inspection, bilateral eye PERRL, bilateral eye EOMI ENT: normal ENT inspection, hearing grossly normal, normal pharynx, no angioedema, normal voice, moist mucus membranes Neck: normal inspection, full range of motion, supple, no meningismus, no bony tend Respiratory: normal inspection, lungs clear, normal breath sounds, no rhonchi, no respiratory distress, no retraction, no accessory muscle use, no wheezing Cardiovascular #1: normal inspection, regular rate, rhythm, no edema Gastrointestinal: normal inspection, normal bowel sounds, non tender, soft, no mass, non-distended Musculoskeletal: gait/station normal, normal range of motion Neurologic: normal inspection, alert, oriented x3, responsive, motor strength/ tone normal Psychiatric: normal inspection, judgement/insight normal, memory normal Suicide Risk Assessment: Suicidal Ideation: No Had intent to initiate attempt: No Pt's plan for suicide attempt: No Has means to complete attempt: No Skin: normal inspection, normal color, no rash, warm/dry Medical Decision Making Diagnostic Impression: Primary Impression: Chest pain ER Course EMERGENT LABS AND DIAGNOSTIC STUDIES: Lab Results were reviewed by me and interpreted as below. Unremarkable 12-lead EKG Interpretation by Maverick Pineda MD: Normal Sinus Rhythm at 60 beats per minute Normal axis QT not prolonged Nonspecific ST-T wave changes Overall impression is normal sinus rhythm Radiology Results as interpreted by Radiology below were reviewed by Maverick Pineda MD : CXR: NAD Nursing Notes Reviewed Previous Medical Records were requested via the electronic health record. EMERGENCY DEPARTMENT COURSE / MEDICAL DECISION MAKING: The patient was placed on a clip baker, continuous pulse oximetry, and tests as ordered. My differential diagnosis included: ACS, myocardial infarction, angina, pericarditis, aortic dissection, pleurisy, pleural effusion, pneumothorax, pneumonia, PE, costochondritis, PUD, gastritis, GERD, muscular. I observed the patient for a period of time and the patient felt better. On reassessment, the patient's history, vital signs, exam and studies were all reviewed. I will re-evaluate for further workup and recommendation based on the diagnostic testing results and how the patient responds to treatment. My initial impression was: Atypical chest pain. My final impression was the same. I am not worried about PE, since the patient was not complaining of SOB, and did not have hypoxia, hemoptysis, tachycardia or syncope. Chest x-ray was negative with no signs of acute disease. The patient was advised to arrive back to the ED for new or worsening symptoms. This patient presents with signs and symptoms potentially concerning for coronary ischemia. While it is not possible to be 100% accurate about the etiology of the patient's chest pain at this time (after an ED evaluation.) The patient's MAKENNA Score is: 1. The patient's HEART Score is: 3. I told the patient that the risk of ACS/ischemia is not zero but is very unlikely. The patient confirmed heard my advice and agreed to see their own physician within two days. In addition the name of the on-call quality control industrial engineer is provided in the discharge papers. Pt. advised to return for further episodes especially if he were to develop exertional chest pain. MAKENNA: age 65 years or older 1 at least 3 risk factors for coronary artery disease 0 prior coronary stenosis of 50% or more 0 ST-segment deviation on ECG at presentation 0 at least two anginal events in prior 24 hours 0 use of aspirin in the prior seven days 0 elevated serum cardiac biomarkers 0 HEART: (0-2 for five variables) History 0 EKG (ST depr = 1mm) 0 Age (45-65) 2 Risk Factors (1-2) 1 Troponin (1-2x) 0 The patient is a good candidate for outpatient care and will be discharged with instructions to follow up with their PMD in 1-2 days. I explained the findings and plan to the patient, who expressed verbal understanding and agreed with plan for discharge and follow up. The patient was given after care instructions and welcomed to return to the ED for any new or worsening symptoms. The patient was stable at the time of discharge. The patient's blood pressure was elevated >120/80 but appears stable without evidence of hypertensive emergency or urgency. The patient was counseled about the risks of hypertension and urged to pursue outpatient monitoring and therapy within a week with their primary care physician or the list given in the community resources book. EKG Diagnostic Results EKG Time: 10:14 Rate: normal Rhythm: NSR ST Segments: no acute changes ASA given to the pt in ED: No Rhythm Strip Diag. Results Rhythm Strip Time: 10:14 EP Interpretation: yes Rate: 60 Rhythm: NSR Chest X-Ray Diagnostic Results Chest X-Ray Diagnostic Results : Chest X-Ray Ordered: Yes # of Views/Limited/Complete: 1 View Indication: Chest Pain EP Interpretation: Yes Interpretation: no consolidation, no effusion, no pneumothorax, no acute cardiopulmonary disease, other - noted rads Last Vital Signs Date Time Temp Pulse Resp B/P (MAP) Pulse Ox O2 Delivery O2 Flow Rate FiO2 09/11/18 09:55 97.9 60 29 149/70 99 Room Air Status: improved Disposition: HOME, SELF-CARE Condition: Stable Patient Instructions: Nonspecific Chest Pain Galen Pineda M.D. Sep 11, 2018 10:15
[2018-09-11 10:24] LABS: BASOPHILS % (AUTO) 1.4 % (0.0-2.0); EOSINOPHILS % (AUTO) 1.2 % (0.0-3.0); HEMATOCRIT 37.6 % (37.0-47.0); HEMOGLOBIN 12.1 G/DL (12.0-16.0); LYMPHOCYTES % (AUTO) 21.8 % (20.0-45.0); MEAN CORPUSCULAR VOLUME 89 FL (80-99); NEUTROPHILS % (AUTO) 67.6 % (45.0-75.0); PLATELET COUNT 215 K/UL (150-450); RED BLOOD COUNT 4.24 M/UL (4.20-5.40); RED CELL DISTRIBUTION WIDTH 12.3 % (11.6-14.8); WHITE BLOOD COUNT 5.6 K/UL (4.8-10.8)
[2018-09-11 10:31] LABS: ANION GAP 10 mmol/L (5-15); BLOOD UREA NITROGEN 27 mg/dL (7-18); CALCIUM 10.2 MG/DL (8.5-10.1); CARBON DIOXIDE 21 MMOL/L (21-32); CHLORIDE 107 MMOL/L (98-107); POTASSIUM 4.4 MMOL/L (3.5-5.1); SODIUM 138 MMOL/L (136-145)
[2018-09-11 10:42] LABS: ALANINE AMINOTRANSFERASE 28 U/L (12-78); ALBUMIN 3.5 G/DL (3.4-5.0); ALBUMIN/GLOBULIN RATIO 0.8 (1.0-2.7); ALKALINE PHOSPHATASE 124 U/L (46-116); ASPARTATE AMINO TRANSFERASE 28 U/L (15-37); BILIRUBIN,TOTAL 0.5 MG/DL (0.2-1.0)
--- NOTE | 2018-09-11 11:03 | Diagnostic Imaging Report ---
Indication: Chest pain Comparison: 01/07/2018, 09/27/2017 A single view chest radiograph was obtained. Findings: The lungs appear slightly hyperexpanded. Mild cardiomegaly is present. The aorta is mildly calcified. Bones are osteopenic. The trachea is deviated to the left due to a substernal mass which was noted on the prior occasion and unchanged dating back to the earliest film available 09/27/2017. 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 Suggest follow-up outpatient ultrasound exam of the thyroid gland.
[2018-09-11 11:52] LABS: APPEARANCE,URINE CLEAR; BILIRUBIN, URINE NEGATIVE (NEGATIVE); COLOR,URINE PALE YELLOW; GLUCOSE, URINE (UA) NEGATIVE (NEGATIVE); KETONES,URINE NEGATIVE (NEGATIVE); LEUKOCYTE ESTERASE ,URINE NEGATIVE (NEGATIVE); NITRITE,URINE NEGATIVE (NEGATIVE); PH,URINE 7 (4.5-8.0); PROTEIN,URINE NEGATIVE (NEGATIVE); UROBILINOGEN,URINE NORMAL MG/DL (0.0-1.0)
[2018-09-11 12:09] VITALS: BP 135/75
[2018-09-11 12:10] VITALS: BP 135/75
--- NOTE | 2018-09-13 15:22 | Cardiology Report ---
APPROVED REPORT EKG Measurement Heart [id number] Normal sinus rhythm Moderate voltage criteria for LVH, may be normal variant Borderline ECG
== END 2018-09-11 12:10 | disposition home or self-care (01) ==
LOC: EMR 10:16
DX: R07.89 Other chest pain (principal); I10 Essential (primary) hypertension; Z88.1 Allergy status to other antibiotic agents
CPT/HCPCS: 36415; 71045; 80053; 80307; 81001; 83880; 84484; 85025; 85610; 93005; 99284

== ENCOUNTER 2018-10-08 10:32 | Emergency (ER) | payer MEDICARE ==
[~2018-10-08] VITALS: Ht 157.5 cm; Wt 45.4 kg
[2018-10-08 10:54] VITALS: BP 169/86
[2018-10-08] MEDS ORDERED: Oxymetazoline 0.05% Na Spray 30ml NASAL ONE (11:15)
[2018-10-08] MEDS ORDERED: Silver Nitrate Stick TOPIC ONE (11:15)
[2018-10-08 11:26] LABS: BASOPHILS % (AUTO) 1.4 % (0.0-2.0); EOSINOPHILS % (AUTO) 1.3 % (0.0-3.0); HEMATOCRIT 36.5 % (37.0-47.0); HEMOGLOBIN 11.9 G/DL (12.0-16.0); LYMPHOCYTES % (AUTO) 20.3 % (20.0-45.0); MEAN CORPUSCULAR VOLUME 87 FL (80-99); MONOCYTES % (AUTO) 7.6 % (1.0-10.0); NEUTROPHILS % (AUTO) 69.5 % (45.0-75.0); PLATELET COUNT 242 K/UL (150-450); RED BLOOD COUNT 4.18 M/UL (4.20-5.40); WHITE BLOOD COUNT 5.4 K/UL (4.8-10.8)
[2018-10-08 12:50] VITALS: BP 148/79
--- NOTE | 2018-10-08 12:58 | Emergency Room Report ---
History of Present Illness General Chief Complaint: Nosebleed Source: Patient Present Illness HPI 87-year-old female in Plavix presents with spontaneous epistaxis this morning. She denies any trauma, reports nothing in her else, and she just couldn't get control with direct pressure. Allergies: Coded Allergies: TETRACYCLINE (Verified Allergy, Unknown, 09/27/17) Patient History Past Medical History: see triage record Reviewed Nursing Documentation: PMH: Agreed; PSxH: Agreed Nursing Documentation-PMH Past Medical History: No History, Except For Hx Hypertension: Yes Review of Systems All Other Systems: negative except mentioned in HPI Physical Exam Vital Signs Date Time Temp Pulse Resp B/P (MAP) Pulse Ox O2 Delivery O2 Flow Rate FiO2 10/08/18 10:44 89 18 169/86 99 Room Air Sp02 EP Interpretation: reviewed, normal General Appearance: no apparent distress, alert, non-toxic Head: normocephalic Eyes: bilateral eye normal inspection, bilateral eye PERRL, bilateral eye EOMI ENT: normal ENT inspection, hearing grossly normal, normal pharynx, no angioedema, normal voice, moist mucus membranes, other - L naris with active bleeding, but controlled after clips placed over nose for 20 mins Neck: normal inspection, full range of motion, supple, supple/symm/no masses Respiratory: chest non-tender, lungs clear, normal breath sounds, chest symmetrical, palpation of chest normal Cardiovascular #1: normal peripheral pulses, regular rate, rhythm Cardiovascular #2: 2+ radial (R), 2+ radial (L) Gastrointestinal: normal inspection, non tender, soft, no mass, no guarding, no rebound Rectal: deferred Genitourinary: normal inspection, no CVA tenderness Musculoskeletal: back normal, gait/station normal, normal range of motion, non- tender Neurologic: alert, responsive, hat marker III-XII nml as tested, motor strength/tone normal, sensory intact, speech normal Psychiatric: judgement/insight normal, memory normal, mood/affect normal Skin: normal color, no rash, warm/dry, normal turgor Lymphatic: no adenopathy Medical Decision Making Diagnostic Impression: Primary Impression: Anterior epistaxis ER Course Epistaxis controlled after so nitrate was used to cauterize areas of slight friability but a large clot had been removed previous to this and nasal clips were placed which actually stopped bleeding initially, chemical cauterization was used to complete the procedure. Patient was given Afrin afterwards, and I reevaluated the naris as well as the posterior pharynx and there is no active bleeding. Patient and grandson told to hold one dose of Plavix. Also given nasal precautions Last Vital Signs Date Time Temp Pulse Resp B/P (MAP) Pulse Ox O2 Delivery O2 Flow Rate FiO2 10/08/18 10:44 89 18 169/86 99 Room Air Disposition: HOME, SELF-CARE Condition: Stable Referrals: NON PHYSICIAN (PCP) HEENA KOHLER M.D Oct 08, 2018 12:58
== END 2018-10-08 12:50 | disposition home or self-care (01) ==
LOC: EMR 11:32
DX: R04.0 Epistaxis (principal); I10 Essential (primary) hypertension; Z88.1 Allergy status to other antibiotic agents
CPT/HCPCS: 36415; 85025; 99283

== ENCOUNTER 2020-10-04 11:25 | Emergency (ER) | payer MEDICARE ==
[~2020-10-04] VITALS: Ht 167.6 cm; Wt 43.5 kg
[2020-10-04] MEDS ORDERED: Morphine Sulfate 2mg/ml Inj(IV/IM USE ONLY) IVP ONE ×2 (12:00→14:30)
[2020-10-04 12:42] LABS: BASOPHILS % (AUTO) 1.2 % (0.0-2.0); EOSINOPHILS % (AUTO) 0.5 % (0.0-3.0); HEMATOCRIT 36.6 % (37.0-47.0); HEMOGLOBIN 11.7 G/DL (12.0-16.0); LYMPHOCYTES % (AUTO) 11.8 % (20.0-45.0); MEAN CORPUSCULAR VOLUME 93 FL (80-99); MONOCYTES % (AUTO) 6.2 % (1.0-10.0); NEUTROPHILS % (AUTO) 80.3 % (45.0-75.0); PLATELET COUNT 233 K/UL (150-450); RED BLOOD COUNT 3.96 M/UL (4.20-5.40); RED CELL DISTRIBUTION WIDTH 13.8 % (11.6-14.8); WHITE BLOOD COUNT 7.8 K/UL (4.8-10.8)
[2020-10-04 12:52] LABS: INR 0.9 (0.9-1.1)
[2020-10-04 12:55] LABS: ALANINE AMINOTRANSFERASE 29 U/L (12-78); ALBUMIN 3.5 G/DL (3.4-5.0); ALBUMIN/GLOBULIN RATIO 0.9 (1.0-2.7); ALKALINE PHOSPHATASE 142 U/L (46-116); ASPARTATE AMINO TRANSFERASE 31 U/L (15-37); BILIRUBIN,TOTAL 0.5 MG/DL (0.2-1.0); BLOOD UREA NITROGEN 31 mg/dL (7-18); CALCIUM 9.9 MG/DL (8.5-10.1); CHLORIDE 107 MMOL/L (98-107); CREATININE 0.9 MG/DL (0.55-1.30); SODIUM 140 MMOL/L (136-145)
[2020-10-04 13:13] VITALS: BP 132/77
[2020-10-04 13:14] LABS: CARBON DIOXIDE 23 MMOL/L (21-32)
--- NOTE | 2020-10-04 13:20 | Diagnostic Imaging Report ---
Indication: Pain, trauma status post fall Technique: Spiral acquisitions obtained through the cervical spine. No IV contrast utilized. Multiplanar reconstructions were generated. Total dose length product 467 mGycm. CTDIvol(s) 19 mGy. Dose reduction achieved using automated exposure control. Comparison: none Findings: There is very slight posterior offset of C3 3 on C4 and C4 on C5, otherwise normal bony alignment. There is slight exaggeration of the normal cervical lordosis. No prevertebral soft tissue swelling. No acute fracture. No dislocation. At C3-4, there is moderate degenerative disc narrowing. There is moderate to severe stenosis of the bilateral neural foramina. At C4-5, there is severe degenerative disc narrowing. There is essential bony occlusion of the left neural foramen and severe stenosis of the right neural foramen. At C5-6, there is moderate degenerative disc narrowing. There is severe right and moderate to severe left neural foraminal stenosis. At C6-7, there is moderate degenerative disc narrowing. There is mild bilateral neural foraminal stenosis. There is no significant disc bulge or protrusion or spinal stenosis. At the remaining levels, no neural foraminal narrowing. There is multilevel bilateral facet arthrosis. The right thyroid lobe is enlarged and demonstrates multiple nodules. Impression: No acute bony trauma Degenerative changes, as described Multinodular thyroid. Consider further evaluation with sonography if clinically indicated The CT scanner at [facility] is accredited by the [employer] and the scans are performed using protocols designed to limit radiation exposure to as low as reasonably achievable to attain images of sufficient resolution adequate for diagnostic evaluation.
--- NOTE | 2020-10-04 13:28 | Diagnostic Imaging Report ---
Indication: Pain status post fall Technique: Spiral acquisitions obtained through the thoracic spine. No IV contrast utilized. Multiplanar reconstructions were generated. Total dose length product 203 mGycm. CTDIvol(s) 5 mGy. Dose reduction achieved using automated exposure control Comparison: none Findings: There is mild upper thoracic scoliotic deformity. Otherwise normal bony alignment. The vertebral body heights are preserved. No evidence of acute fracture or dislocation. There is multilevel mostly mild degenerative disc narrowing. No significant disc bulge or protrusion, spinal stenosis, or neural foraminal stenosis is evident. There are multiple endplate depressions caused by intravertebral disc herniation. The included extra spinal soft tissues are unremarkable for a large substernal extension of the right thyroid with what appears to be a heterogeneous mass measuring approximately 6 x 4.4 cm. Impression: No acute bony trauma Degenerative changes as described Enlarged right lobe thyroid with large right lower pole mass extending substernally. Consider further evaluation with sonography if clinically indicated Mild scoliotic deformity The CT scanner at [facility] is accredited by the [employer] and the scans are performed using protocols designed to limit radiation exposure to as low as reasonably achievable to attain images of sufficient resolution adequate for diagnostic evaluation.
[2020-10-04 13:29] LABS: CREATINE KINASE 193 U/L (26-308)
--- NOTE | 2020-10-04 13:35 | Diagnostic Imaging Report ---
Indications: Pain from fall last Saturday Technique: Spiral acquisitions obtained through the lumbar spine. Multiplanar reconstructions were generated. No IV contrast utilized. Total dose length product 128 mGycm. CTDIvol(s) 4 mGy. Dose reduction achieved using automated exposure control Comparison: none Findings: L1 and the bottom of T12 are not included on the imaging volume, but are well visualized on simultaneous CT of the thoracic spine. Vertebral body heights are preserved. Alignment is normal. Vertebral body heights are preserved. No acute fracture. No dislocation. There is multilevel degenerative disc narrowing. T12-L1, circumferential annular bulge results in mild compromise of the right lateral neural foramina. No significant spinal canal stenosis. At the remaining levels, no significant disc bulge or protrusion, spinal stenosis, or neural foraminal stenosis. There is minimal degenerative change of the left sacroiliac joint. There is [id number] apposition of the L3, L4, and L5 spinous processes. The included extra spinal soft tissues demonstrate colonic diverticulosis. Impression: No acute bony trauma Degenerative changes as described Incidental finding of colonic diverticulosis The CT scanner at [facility] is accredited by the [employer] and the scans are performed using protocols designed to limit radiation exposure to as low as reasonably achievable to attain images of sufficient resolution adequate for diagnostic evaluation.
--- NOTE | 2020-10-04 13:42 | Diagnostic Imaging Report ---
Indication: Pain status post fall Technique: Noncontrast spiral acquisitions obtained through the pelvis. Multiplanar reconstructions generated. Total dose length product 130 mGycm. CTDIvol(s) 3 mGy. Dose reduction achieved using automated exposure control Comparison: Abdomen and pelvis CT 11/16/2017 Findings: No evidence of acute fracture. No dislocation. There are fairly severe degenerative changes of the right hip, less severe degenerative changes of the left hip. Unusual density is seen extending from just anterior to the right acetabulum under the right femoral neck. This measures 5.4 x 2.4 cm. An ovoid fluid attenuation and opacity is seen between the abductor muscles on the right. This measures 2.7 x 1.3 cm. The pelvic viscera demonstrate colonic diverticulosis. There is no evidence of significant hematoma or contusion. Impression: No acute bony trauma Degenerative changes, as described There is a soft tissue opacity and a fluid opacity in the right groin region, the etiology and nature of which are uncertain., Neither definitely present on prior study 11/16/2017. Nonemergent MRI may be useful for further evaluation if clinically indicated Colonic diverticulosis The CT scanner at [facility] is accredited by the [employer] and the scans are performed using protocols designed to limit radiation exposure to as low as reasonably achievable to attain images of sufficient resolution adequate for diagnostic evaluation.
--- NOTE | 2020-10-04 13:44 | Diagnostic Imaging Report ---
Clinical Indication:Wrist pain Technique: 3 views of the right wrist Comparison: None Findings: There is a cyst in the distal radius. There are degenerative changes of the first carpometacarpal joint and lateral intercarpal joint. Bones are osteoporotic. No acute fracture. No dislocation. Impression: No acute bony trauma Degenerative changes, as described
--- NOTE | 2020-10-04 13:46 | Diagnostic Imaging Report ---
Indications: Pain status post fall Technique: Two views of the right forearm Comparison: None Findings: No acute fracture. No dislocation. Bones are osteoporotic. There is a cyst in the distal radius. Impression: No acute bony trauma
--- NOTE | 2020-10-04 13:48 | Diagnostic Imaging Report ---
Indication: Pain, status post fall Technique: 3 views right hand Comparison: none Findings: No acute fracture. No dislocation. There are degenerative changes of the first and carpal phalangeal joint, second through fifth distal interphalangeal joints, and of the wrist Impression: Degenerative changes. No acute bony trauma
[2020-10-04] MEDS ORDERED: Acetaminophen 500mg (ES) tab ORAL ONE (14:30)
--- NOTE | 2020-10-04 14:33 | Emergency Room Report ---
History of Present Illness General Chief Complaint: Multiple Trauma/Fall Source: Patient Present Illness HPI 89-year-old female presents to ED for evaluation. Brought in by granddaughter. Status post fall at home. 2 days ago. Neighbor found the patient and called the granddaughter. Patient is complaining of back pain and right arm pain. 10 out of 10, dull, nonradiating. Denies any headache. Denies any nausea or vomiting. Denies any chest pain or shortness of breath. No other aggravating relieving factors. Denies any other associated symptoms Allergies: Coded Allergies: TETRACYCLINE (Verified Allergy, Unknown, 09/27/17) COVID-19 Screening Contact w/high risk pt: No Experienced COVID-19 symptoms?: No COVID-19 Testing performed DIRECTOR MEDICAL SCIENCE: No Patient History Past Medical History: HTN Past Surgical History: none Pertinent Family History: none Social History: Denies: smoking, alcohol use, drug use Now: No Immunizations: UTD Reviewed Nursing Documentation: PMH: Agreed; PSxH: Agreed Nursing Documentation-PMH Hx Hypertension: Yes Review of Systems All Other Systems: negative except mentioned in HPI Physical Exam Vital Signs Date Time Temp Pulse Resp B/P (MAP) Pulse Ox O2 Delivery O2 Flow Rate FiO2 10/04/20 11:32 98.1 71 18 153/70 (97) 99 Room Air Sp02 EP Interpretation: reviewed, normal General Appearance: alert, GCS 15, non-toxic, cachetic Head: normocephalic, atraumatic Eyes: bilateral eye normal inspection, bilateral eye PERRL ENT: hearing grossly normal, normal pharynx, no angioedema, normal voice Neck: full range of motion, supple/symm/no masses, tender midline Respiratory: chest non-tender, lungs clear, normal breath sounds, speaking full sentences Cardiovascular #1: regular rate, rhythm, no edema Cardiovascular #2: 2+ carotid (R), 2+ carotid (L), 2+ radial (R), 2+ radial (L), 2+ dorsalis pedis (R), 2+ dorsalis pedis (L) Gastrointestinal: normal bowel sounds, non tender, soft, non-distended, no guarding, no rebound Rectal: deferred Genitourinary: normal inspection, no CVA tenderness, vertebral tenderness Musculoskeletal: back normal, normal range of motion, gait/station normal, tender - R forearm Neurologic: alert, motor strength/tone normal, oriented x3, sensory intact, responsive, speech normal Psychiatric: judgement/insight normal, memory normal, mood/affect normal, no suicidal/homicidal ideation Reflexes: 3+ bicep (R), 3+ bicep (L), 3+ tricep (R), 3+ tricep (L), 3+ knee (R), 3+ knee (L) Lymphatic: no adenopathy Medical Decision Making Diagnostic Impression: Primary Impression: Multiple injuries due to trauma ER Course Hospital Course 89-year-old female presents with pain to her right arm and back status post fall Differential diagnoses include: fracture, dislocation, contusion Clinical course Patient placed on stretcher. After initial history and physical I ordered labs, pain meds, multiple imaging studies Labs reviewed- no leukocytosis, electrolytes okay, hemoglobin/hematocrit okay CT C-spine T-spine L-spine and pelvis show degenerative changes but no acute fractures X-rays show no acute fractures. There are degenerative changes Continues to have pain. Unsteady gait. Lives alone. Given age and comorbidities I do not believe patient can be safely discharged to home. Spoke to granddaughter who is POA. Agrees with admission. Because of insurance patient will be transferred i. I feel this is a highly complex case requiring extensive working including EKG/Rhythm strip, Xray/CT/US, Blood/urine lab work, repeat exams while in ED, and administration of strong opiates/narcotics for pain control, admission to hospital or close patient follow up. Diagnosis -multiple injuries due to trauma transferrred in serious condition Laboratory Tests Test 10/04/20 12:05 10/04/20 12:33 White Blood Count 7.8 K/UL (4.8-10.8) Red Blood Count 3.96 M/UL (4.20-5.40) L Hemoglobin 11.7 G/DL (12.0-16.0) L Hematocrit 36.6 % (37.0-47.0) L Mean Corpuscular Volume 93 FL (80-99) Mean Corpuscular Hemoglobin 29.6 PG (27.0-31.0) Mean Corpuscular Hemoglobin Concent 32.0 G/DL (32.0-36.0) Red Cell Distribution Width 13.8 % (11.6-14.8) Platelet Count 233 K/UL (150-450) Mean Platelet Volume 7.0 FL (6.5-10.1) Neutrophils (%) (Auto) 80.3 % (45.0-75.0) H Lymphocytes (%) (Auto) 11.8 % (20.0-45.0) L Monocytes (%) (Auto) 6.2 % (1.0-10.0) Eosinophils (%) (Auto) 0.5 % (0.0-3.0) Basophils (%) (Auto) 1.2 % (0.0-2.0) Prothrombin Time 10.3 SEC (9.30-11.50) Prothromb Time International Ratio 0.9 (0.9-1.1) Activated Partial Thromboplast Time 22 SEC (23-33) L Sodium Level 140 MMOL/L (136-145) Potassium Level 4.0 MMOL/L (3.5-5.1) Chloride Level 107 MMOL/L (98-107) Carbon Dioxide Level 23 MMOL/L (21-32) Blood Urea Nitrogen 31 mg/dL (7-18) H Creatinine 0.9 MG/DL (0.55-1.30) Estimat Glomerular Filtration Rate > 60 mL/min (>60) Glucose Level 77 MG/DL (74-106) Calcium Level 9.9 MG/DL (8.5-10.1) Total Bilirubin 0.5 MG/DL (0.2-1.0) Aspartate Amino Transf (AST/SGOT) 31 U/L (15-37) Alanine Aminotransferase (ALT/SGPT) 29 U/L (12-78) Alkaline Phosphatase 142 U/L (46-116) H Total Protein 7.5 G/DL (6.4-8.2) Albumin 3.5 G/DL (3.4-5.0) Globulin 4.0 g/dL Albumin/Globulin Ratio 0.9 (1.0-2.7) L Total Creatine Kinase 193 U/L (26-308) Other X-Ray Diagnostic Results Other X-Ray Diagnostic Results #1: X-Ray ordered: R hand # of Views/Limited Vs Complete: 3 View Indication: Pain EP Interpretation: Yes Interpretation: no dislocation, no soft tissue swelling, no fractures Impression: No acute disease Electronically Signed by: Electronically signed by Georges Alex MD Other X-Ray Diagnostic Results #2: X-Ray ordered: R wrist # of Views/Limited Vs Complete: 3 View Indication: Pain EP Interpretation: Yes Interpretation: no dislocation, no soft tissue swelling, no fractures Impression: No acute disease Electronically Signed by: Electronically signed by Georges Alex MD Other X-Ray Diagnostic Results #3: X-Ray ordered: R forearm # of Views/Limited Vs Complete: 2 View Indication: Pain EP Interpretation: Yes Interpretation: no dislocation, no soft tissue swelling, no fractures Impression: No acute disease Electronically Signed by: Electronically signed by Georges Alex MD CT/MRI/US Diagnostic Results CT/MRI/US Diagnostic Results #1: Imaging Test Ordered: CT C spine Impression Procedure: CT C Spine no Contrast Indication: Pain, trauma status post fall Technique: Spiral acquisitions obtained through the cervical spine. No IV contrast utilized. Multiplanar reconstructions were generated. Total dose length product 467 mGycm. CTDIvol(s) 19 mGy. Dose reduction achieved using automated exposure control. Comparison: none Findings: There is very slight posterior offset of C3 3 on C4 and C4 on C5, otherwise normal bony alignment. There is slight exaggeration of the normal cervical lordosis. No prevertebral soft tissue swelling. No acute fracture. No dislocation. At C3-4, there is moderate degenerative disc narrowing. There is moderate to severe stenosis of the bilateral neural foramina. At C4-5, there is severe degenerative disc narrowing. There is essential bony occlusion of the left neural foramen and severe stenosis of the right neural foramen. At C5-6, there is moderate degenerative disc narrowing. There is severe right and moderate to severe left neural foraminal stenosis. At C6-7, there is moderate degenerative disc narrowing. There is mild bilateral neural foraminal stenosis. There is no significant disc bulge or protrusion or spinal stenosis. At the rem aining levels, no neural foraminal narrowing. There is multilevel bilateral facet arthrosis. The right thyroid lobe is enlarged and demonstrates multiple nodules. Impression: No acute bony trauma Degenerative changes, as described Multinodular thyroid. Consider further evaluation with sonography if clinically indicated The CT scanner at [facility] is accredited by the [employer] and the scans are performed using protocols designed to limit radiation exposure to as low as reasonably achievable to attain images of sufficient resolution adequate for diagnostic evaluation. CT/MRI/US Diagnostic Results #2: Imaging Test Ordered: CT T spine Impression Procedure: CT T Spine no Contrast Indication: Pain status post fall Technique: Spiral acquisitions obtained through the thoracic spine. No IV cont rast utilized. Multiplanar reconstructions were generated. Total dose length product 203 mGycm. CTDIvol(s) 5 mGy. Dose reduction achieved using automated exposure control Comparison: none Findings: There is mild upper thoracic scoliotic deformity. Otherwise normal bony alignment. The vertebral body heights are preserved. No evidence of acute fracture or dislocation. There is multilevel mostly mild degenerative disc narrowing. No significant disc bulge or protrusion, spinal stenosis, or neural foraminal stenosis is evident. There are multiple endplate depressions caused by intravertebral disc herniation. The included extra spinal soft tissues are unremarkable for a large substernal extension of the right thyroid with what appears to be a heterogeneous mass measuring approximately 6 x 4.4 cm. Impression: No acute bony trauma Degenerative changes as described Enlarged right lobe thyroid with large right lower pole mass extending substernally. Consider further evaluation with sonography if clinically indicated Mild scoliotic deformity The CT scanner at [facility] is accredited by the [employer] and the scans are performed using protocols designed to limit radiation exposure to as low as reasonably achievable to attain images of sufficient resolution adequate for diagnostic evaluation. CT/MRI/US Diagnostic Results #3: Imaging Test Ordered: CT L spine Impression Procedure: CT L Spine no Contrast Indications: Pain from fall last Saturday Technique: Spiral acquisitions obtained through the lumbar spine. Multiplanar reconstructions were generated. No IV contrast utilized. Total dose length product 128 mGycm. CTDIvol(s) 4 mGy. Dose reduction achieved using automated exposure control Comparison: none Findings: L1 and the bottom of T12 are not included on the imaging volume, but are well visualized on simultaneous CT of the thoracic spine. Vertebral body heights are preserved. Alignment is normal. Vertebral body heights are preserved. No acute fracture. No dislocation. There is multilevel degenerative disc narrowing. T12-L1, circumferential annular bulge results in mild compromise of the right lateral neural foramina. No significant spinal canal stenosis. At the remaining levels, no significant disc bulge or protrusion, spinal stenosis, or neural foraminal stenosis. There is minimal degenerative change of the left sacroiliac joint. There is [id number] apposition of the L3, L4, and L5 spinous processes. The included extra spinal soft tissues demonstrate colonic diverticulosis. Impression: No acute bony trauma Degenerative changes as described Incidental finding of colonic diverticulosis The CT scanner at [facility] is accredited by the [employer] and the scans are performed using protocols designed to limit radiation exposure to as low as reasonably achievable to attain images of sufficient resolution adequate for diagnostic evaluation. CT/MRI/US Diagnostic Results #4: Imaging Test Ordered: CT Pelvis Impression Procedure: CT Pelvis no Contrast Indication: Pain status post fall Technique: Noncontrast spiral acquisitions obtained through the pelvis. Multiplanar reconstructions generated. Total dose length product 130 mGycm. CTDIvol(s) 3 mGy. Dose reduction achieved using automated exposure control Comparison: Abdomen and pelvis CT 11/16/2017 Findings: No evidence of acute fracture. No dislocation. There are fairly severe degenerative changes of the right hip, less severe degenerative changes of the left hip. Unusual density is seen extending from just anterior to the right acetabulum under the right femoral neck. This measures 5.4 x 2.4 cm. An ovoid fluid att enuation and opacity is seen between the abductor muscles on the right. This measures 2.7 x 1.3 cm. The pelvic viscera demonstrate colonic diverticulosis. There is no evidence of significant hematoma or contusion. Impression: No acute bony trauma Degenerative changes, as described There is a soft tissue opacity and a fluid opacity in the right groin region, the etiology and nature of which are uncertain., Neither definitely present on prior study 11/16/2017. Nonemergent MRI may be useful for further evaluation if clinically indicated Colonic diverticulosis The CT scanner at [facility] is accredited by the [employer] and the scans are performed using protocols designed to limit radiation exposure to as low as reasonably achievable to attain images of sufficient resolution adequate for diagnostic evaluation. Last Vital Signs Date Time Temp Pulse Resp B/P (MAP) Pulse Ox O2 Delivery O2 Flow Rate FiO2 10/04/20 13:37 98.0 10/04/20 13:13 72 16 132/77 99 Room Air Status: improved Disposition: SHORT-TERM HOSP Condition: Serious Referrals: [facility],REFERRING (PCP) Georges Alex MD Oct 04, 2020 14:33
[2020-10-04 15:24] LABS: APPEARANCE,URINE CLEAR; BILIRUBIN, URINE NEGATIVE (NEGATIVE); COLOR,URINE PALE YELLOW; GLUCOSE, URINE (UA) NEGATIVE (NEGATIVE); KETONES,URINE 2+ (NEGATIVE); LEUKOCYTE ESTERASE ,URINE NEGATIVE (NEGATIVE); NITRITE,URINE NEGATIVE (NEGATIVE); PH,URINE 6 (4.5-8.0); PROTEIN,URINE NEGATIVE (NEGATIVE); UROBILINOGEN,URINE NORMAL MG/DL (0.0-1.0)
[2020-10-04 15:33] VITALS: BP 163/11
[2020-10-04 15:57] VITALS: BP 163/11
--- NOTE | 2020-10-04 16:08 | Diagnostic Imaging Report ---
Indication: Shortness of breath Technique: One view of the chest Comparison: 09/11/2018 Findings: No acute infiltrates, effusions, or congestion. Tortuous calcified aorta. Normal heart size. There is leftward tracheal deviation and evidence of right-sided mediastinal mass. No significant change Impression: No acute process. Right sided mediastinal mass. 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
== END 2020-10-04 15:58 | disposition short-term general hospital (02) ==
LOC: EMR 12:32
DX: M54.9 Dorsalgia, unspecified (principal); M79.602 Pain in left arm; M51.36 Other intervertebral disc degeneration, lumbar region; I10 Essential (primary) hypertension; Z20.828 Contact with and (suspected) exposure to other viral communicable diseases; Z88.1 Allergy status to other antibiotic agents; W19.XXXA Unspecified fall, initial encounter; Y92.009 Unspecified place in unspecified non-institutional (private) residence as the place of occurrence of the external cause
CPT/HCPCS: 36415; 71045; 72125; 72128; 72131; 72192; 73090; 73110; 73130; 80053; 81003; 82550; 85025; 85610; 85730; 86850; 86900; 86901; 96374; 96376; 99284; J2270; U0002